=== PATIENT | female | born 2000 | race Two or more races ===

== ENCOUNTER 2025-06-23 19:27 | Inpatient (IN) | payer BC, OTHER ==
[~2025-06-23] VITALS: Ht 162.6 cm; Wt 73.2 kg
[2025-06-23 21:14] LABS: Hematocrit 40.5 % (36.0-46.0); Hemoglobin 13.3 g/dL (12.2-16.2); Mean Corpuscular Hemoglobin 29.3 pg (28.0-32.0); Mean Corpuscular Volume 89.0 fL (80.0-100.0); Nucleated Red Blood Cells % 0.0 %
--- NOTE | 2025-06-23 21:15 | DVH ---
EXAM: CT CT AB PEL WO CON-NO ORAL OR IV HISTORY: FLANK PAIN Comparison Study: None Exam Date: 06/23/2025 08:49 PM Radiation Dose Information: CT Dose: CTDI volume is 13.13 mGy. Dose-length product is 765.2 mGy*cm Technique: Multidetector CT of the abdomen and pelvis was performed. Imaging was performed without IV contrast. Axial, coronal and sagittal multiplanar reformats were obtained from the axial data set by the technologist. Findings: Lack of intravenous contrast compromises evaluation of perfusion and for isodense lesions. Lower chest: Clear. Liver: Unremarkable Biliary system: Unremarkable Spleen: Unremarkable Pancreas: Unremarkable. Adrenals: Unremarkable. Kidneys and ureters: 5 mm calculus in the proximal right ureter with moderate upstream collecting system dilatation. Punctate nonobstructing left upper pole calculus. Bowel: No obstruction. Diffuse stool burden throughout the colon. Normal appendix. Bladder: Unremarkable Reproductive organs: No abnormal mass. Lymph nodes: Unremarkable. Peritoneum: Unremarkable Vessels: Patency not evaluated on this noncontrast study. Bones and soft tissue: No aggressive osseous lesion IMPRESSION: Obstructing 5 mm right proximal ureteral calculus with moderate upstream collecting system dilatation. Diffuse stool burden suggestive of constipation.
[2025-06-23 21:29] LABS: Alanine Aminotransferase 23 U/L (7-40); Albumin 4.5 g/dL (3.2-4.8); Alkaline Phosphatase 77 U/L (46-116); Anion Gap 9 (5-15); BUN/Creatinine Ratio 23.3 (10.0-20.0); Blood Urea Nitrogen 20 mg/dL (9-23); Calcium 9.2 mg/dL (8.7-10.4); Carbon Dioxide 26 mmol/L (20-31); Chloride 105 mmol/L (98-107); Glucose 100 mg/dL (74-106); Potassium 3.5 mmol/L (3.5-5.1); Sodium 140 mmol/L (136-145); Total Protein 7.6 g/dL (5.7-8.2)
[2025-06-23 21:30] LABS: Bilirubin, Total 0.7 mg/dL (0.2-1.0)
--- NOTE | 2025-06-23 22:01 | ED.PDOC ---
General HPI Comments HPI: This is a 24 year old female presenting to the ED with chief complaint of abdominal pain. Patient reports that she has been experiencing RUQ/right side rib pain with associated nausea and chills since 4 hours ago. Patient relays that her symptoms feel similar to a previous kidney stone she had passed. Patient denies any vomiting, dysuria, hematuria, flank pain, dizziness, fever, or chills. Past Medical History: Kidney stones Past Surgical History: Social History: Denies smoking, ETOH, or drug use Medications: None Allergies: NKDA HPI: Poor Historian. ALEXY: R ABD PAIN. NO FP, NORMAL , CURRENTLY ON HER CYCLE. N/ abdominal PAIN. NORMAL EXAM. REVIEW OF SYSTEMS: CONSTITUTIONAL: Denies acute: fever, diaphoresis, chills, generalized weakness. HEAD: Denies acute: headache, photophobia Eyes: Denies acute: Double vision, vision loss, eye pain, eye discharge. EARS: Denies acute: tinnitus, hearing loss, ear discharge, ear pain, THROAT: Denies acute: sore throat, swelling, difficulty swallowing , pain with swallowing, change in voice. NECK: Denies acute: neck pain, neck swelling, stiff neck. HEART: Denies acute : chest pain, palpitations, LUNGS: Denies acute: SOB, wheezing, cough, hemoptysis ABDOMEN: Denies acute: Vomiting, diarrhea, melena , hematemesis, hematochezia SKIN: Denies acute: rash, redness, lesions, itchiness. EXTREMITIES: Denies acute: calf pain, numbness, tingling, weakness, denies pain in extremity. Denies acute: Low back pain. Neuro: Denies acute: focal neurological deficit, motor or sensory focal neurological deficit, tremors, seizure like activity, confusion, dizziness, change in mental status, loss of bowel or bladder function, cauda equina like symptoms. : Denies acute: dysuria, hematuria, flank pain, increase in urinary frequency. PSYCH: Denies acute: hallucination, suicidal ideation, homicidal ideation. FEMALE: Denies acute: abnormal vaginal bleeding, foul odor, unusual discharge. PHYSICAL EXAM: General: ----moderate----acute distress, awake and alert. Head: normocephalic, atraumatic. No raccoon's eyes, no zee sign. Neck: supple, trachea is midline, no swelling. Throat: Normal phonation. Eyes:, no erythema, no purulent discharge, no proptosis, no icterus. Heart: regular rate, regular rhythm, no significant murmur appreciated. Lungs: no apparent respiratory distress, Able to speak in full sentences. No wheezing, no rhonchi, no crackles. No stridors Clear to auscultation bilaterally. Abdomen: Right mid axillary line below the ribcage tender to palpation, non distended, soft, no guarding, no rebound, + bowel sounds. Neuro: Awake, Alert, oriented to name, self, situation, follows commands GCS=15. Speech is normal. Skin: no petechia, no purpura, no cyanosis, non-pale, not jaundice. Lower extremities: --no - Pitting edema no deformity, no focal swelling, no calf TTP. Makes eye contact. moves all four extremities. Face: no apparent facial droop. No CVA tenderness to percussion bilaterally. Ambulating in the ED independently. ED COURSE: DISCLAIMER: This medical document was created using an electronic medical record system with voice recognition software and computerized dictation system. Although this document has been carefully reviewed, there might still be some phonetic and typographical errors. Occasional wrong-word or "sound-alike" substitutions may have occurred due to the inherent limitations of voice recognition software. These areas are purely typographical due to imperfections of the software programs and do not reflect any compromise in the patient's medical care. Please read the chart carefully and recognize, using context, where these substitutions have occurred. Chief Complaint: Flank Pain Time Seen by MD: 21:58 Reviewed notes: Medications, Allergies Allergies: Coded Allergies: NO KNOWN ALLERGIES (Unverified , 06/23/25) Home Meds No Active Prescriptions or Reported Meds Information Source: Patient Mode of Arrival: Ambulatory Was a procedure done? Was a procedure done?: No Differential Diagnosis Kidney stone (Female): Other (Flank Pain;DDX include Nephrolethiasis, obstructive uropathy, kidney cancer, renal infarct, intraabdominal neoplasm, lower lobe pneumonia, retroperitoneal hemorrhage, pancreatitis, aneurysm, dissection, musculoskeletal, rib contusion/trauma, hematoma, PYLONEPHRITIS, muscle strain, spinal disease. IN A FEMALE) Other Differential Diagnosis DDX include Diverticulitis, colitis, gastroenteritis, acute abdomen, SBO, enteritis, constipation, volvulus, appendicitis, Gallbladder disease, choledocolithiasis, ascending cholangitis, pancreatitis, intraAbdominal mass/neoplasm, hepatitis, UTI, pylonephritis, kidney stone, aneurysm, dissection, Inflammatory bowel disease, gastroparesis, ischemic bowel,,,,,, Food poisoning, bacterial/parasitic/viral etiology, trauma, diabetes DKA, ovarian torsion, ovarian cyst/mass, tubo-ovarian abscess, , ectopic , PID, STD. X-Ray, Labs, Meds, VS Vital Signs Date Time Temp Pulse Resp B/P (MAP) Pulse Ox O2 Delivery O2 Flow Rate FiO2 06/23/25 22:27 98.6 67 16 117/80 (92) 100 98.6 06/23/25 19:31 98.7 74 18 126/76 99 98.7 Lab Test 06/23/25 21:56 06/23/25 21:00 Range/Units Urine Color Light-orange Yellow Urine Clarity Turbid H Clear Urine pH 7.0 5.0-9.0 Urine Specific [place] 1.027 1.001-1.035 Urine Protein 1+ H Negative Urine Ketones 2+ H Negative Urine Blood 3+ H Negative /uL Urine Nitrite Negative Negative Urine Bilirubin Negative Negative Urine Urobilinogen Normal Negative mg/dL Urine Leukocyte Esterase Negative Negative /uL Urine RBC 1227 0 - 4 /hpf Urine Microscopic WBC 0-5 /HPF Urine Squamous Epithelial Cells None seen <5 /hpf Urine Bacteria None seen None Seen /hpf Urine Mucus Few None Seen Urine Yeast (Budding) Few None Seen /hpf Urine Glucose Normal Normal mg/dL Urine Opiates Screen Neg NEGATIVE Urine Fentanyl Screen Neg NEGATIVE Urine Barbiturates Screen Neg NEGATIVE Urine Phencyclidine Screen Neg NEGATIVE Urine Amphetamines Screen Neg NEGATIVE Urine Benzodiazepines Screen Neg NEGATIVE Urine Cocaine Screen Neg NEGATIVE Urine Cannabinoids Screen Neg NEGATIVE White Blood Count 13.3 H 4.4-10.8 10^3/uL Red Blood Count 4.55 4.0-5.20 10^6/uL Hemoglobin 13.3 12.2-16.2 g/dL Hematocrit 40.5 36.0-46.0 % Mean Corpuscular Volume 89.0 80.0-100.0 fL Mean Corpuscular Hemoglobin 29.3 28.0-32.0 pg Mean Corpuscular Hemoglobin Concent 32.9 32.0-36.0 g/dL Red Cell Distribution Width 13.8 11.8-14.3 % Platelet Count 256 140-450 10^3/uL Mean Platelet Volume 7.4 6.9-10.8 fL Neutrophils (%) (Auto) 82.5 H 37.0-80.0 % Lymphocytes (%) (Auto) 9.5 L 10.0-50.0 % Monocytes (%) (Auto) 7.3 0.0-12.0 % Eosinophils (%) (Auto) 0.4 0.0-7.0 % Basophils (%) (Auto) 0.3 0.0-2.0 % Neutrophils # (Auto) 11.0 H 1.6-8.6 10 ^3/uL Lymphocytes # (Auto) 1.3 0.4-5.4 10 ^3/uL Monocytes # (Auto) 1.0 0-1.3 10 ^3/uL Eosinophils # (Auto) 0.1 0-0.8 10 ^3/uL Basophils # (Auto) 0 0-0.2 10 ^3/uL Nucleated Red Blood Cells 0.0 % Sodium Level 140 136-145 mmol/L Potassium Level 3.5 3.5-5.1 mmol/L Chloride Level 105 98-107 mmol/L Carbon Dioxide Level 26 20-31 mmol/L Anion Gap 9 5-15 Blood Urea Nitrogen 20 9-23 mg/dL Creatinine 0.86 0.550-1.02 mg/dL Glomerular Filtration Rate Calc 95 >90 mL/min BUN/Creatinine Ratio 23.3 H 10.0-20.0 Serum Glucose 100 74-106 mg/dL Lactic Acid Level 1.0 0.4-2.0 mmol/L Calcium Level 9.2 8.7-10.4 mg/dL Total Bilirubin 0.7 0.2-1.0 mg/dL Aspartate Amino Transferase (AST) 25 13-40 U/L Alanine Aminotransferase (ALT) 23 7-40 U/L Alkaline Phosphatase 77 46-116 U/L Total Protein 7.6 5.7-8.2 g/dL Albumin 4.5 3.2-4.8 g/dL Current Medications Medications (Trade) Dose Ordered Sig/Corina Route Start Time Stop Time Status Last Admin Tamsulosin HCl (Flomax) 0.4 mg ONCE ONCE PO 06/23/25 22:00 06/23/25 22:01 DC 06/23/25 23:39 Fentanyl Citrate 100 mcg ONCE ONCE IV 06/23/25 22:00 06/23/25 22:01 DC 06/23/25 23:37 Sodium Chloride 1,000 ml @ 1,000 mls/hr Q1H ONCE IV 06/23/25 22:00 06/23/25 22:59 DC 06/23/25 23:19 [place] [address] Ph: [phone] DIAGNOSTIC IMAGING Diagnostic Imaging Report : [id number] Signed PATIENT: MEGAN TRACEYCT: [id number] UNIT: [id number] : 2000 LOC: ER ROOM / BED: / AGE / SEX: 24 / F ADM STATUS: REG ER SERVICE 38 ORDERING PHYSICIAN: CHARLEE CANALES DO PROCEDURE(s): ABPL - CT AB PEL WO CON-NO ORAL OR IV REASON: FLANK PAIN ORDER NUMBER(s): [id number], ACCESSION NUMBER(s): [id number] EXAM: CT CT AB PEL WO CON-NO ORAL OR IV HISTORY: FLANK PAIN Comparison Study: None Exam Date: 06/23/2025 08:49 PM Radiation Dose Information: CT Dose: CTDI volume is 13.13 mGy. Dose-length product is 765.2 mGy*cm Technique: Multidetector CT of the abdomen and pelvis was performed. Imaging was performed without IV contrast. Axial, coronal and sagittal multiplanar reformats were obtained from the axial data set by the technologist. Findings: Lack of intravenous contrast compromises evaluation of perfusion and for isodense lesions. Lower chest: Clear. Liver: Unremarkable Biliary system: Unremarkable Spleen: Unremarkable Pancreas: Unremarkable. Adrenals: Unremarkable. Kidneys and ureters: 5 mm calculus in the proximal right ureter with moderate upstream collecting system dilatation. Punctate nonobstructing left upper pole calculus. Bowel: No obstruction. Diffuse stool burden throughout the colon. Normal appendix. Bladder: Unremarkable Reproductive organs: No abnormal mass. Lymph nodes: Unremarkable. Peritoneum: Unremarkable Vessels: Patency not evaluated on this noncontrast study. Bones and soft tissue: No aggressive osseous lesion IMPRESSION: Obstructing 5 mm right proximal ureteral calculus with moderate upstream collecting system dilatation. Diffuse stool burden suggestive of constipation. ATED BY: ADAN JACOBSEN MD DICTATED DATE/TIME: 06/23/252112 SIGNED BY: ADAN JACOBSEN MD SIGNED DATE/TIME: 06/23/252112 CC: Time of 1ST Reevaluation: 22:58 Reevaluation 1ST: Unchanged Patient Education/Counseling: Diagnosis, Treatment Family Education/Counseling: No Family Present Comments MDM: patient presented with the above HPI.-abdominal pain-----workup was initiated. patient was found with the above mentioned diagnosis. the following medications were ordered: please refer to order lists of meds and tests obtained by myself Dr. Canales. Patient ED course and VS have been stabilized. Patient has been reassessed in the ED and remained in a stable condition. Pertinent incidental findings were discussed with the patient and/or family. Patient/family voices understanding and is agreeable with plan. Patient has been observed in the ED adequate length of time to insure improvement/stability. Escalation of care considered: Consideration of escalation to observation or admission Patient was ADMITTED to the medicine team for further evaluation and treatment of their presentation. All the reports of any imaging studies that were ordered by myself were reviewed by myself. Departure 1 Departure Time of Disposition: 04:46 Impression: Primary Impression: Urinary tract obstruction by kidney stone Additional Impression: Constipation Disposition: ADMITTED INPATIENT Admit to: Tele Condition: Guarded e-Prescriptions No Active Prescriptions or Reported Meds Discharged With: Self Critical Care Note Critical Care Time?: No I personally scribed for CHARLEE CANALES DO ([email or web address]) on 06/23/25 at 22:01. Electronically submitted by Aníbal Moody ([email or web address]). CHARLEE CANALES DO Jun 23, 2025 22:01
[2025-06-23 22:35] LABS: Urine Budding Yeast FEW /hpf (None Seen); Urine Protein, UAD 1+ (Negative)
--- NOTE | 2025-06-23 23:10 | DVHHPRES ---
History of Present Illness Resident Creating Document: ARTI WALTERS RESIDENT History of Present Illness This is a 24-year-old female with apparently no past medical history came to ER with complaint of intractable right flank pain which started today around 3:00 p.m. day of admission which is 9/10 intensity, aggravated on movement or walking, not tried any meds, localized no radiation, stabbing in nature. Patient history of passes stone 1 and half year ago. Patient denies any recent dietary changes or taking OTC drugs like calcium. No recent history of trauma or sick contacts. Denies any fever, SOB, cough, abdominal pain, dysuria or any other acute distress. Past medical history: History of kidney stone Past surgical history: x1 2021 Family history: Mother- kidney stone Personal: Denies any smoking, illicit drug or EtOH Allergy: No known allergy PCP: Not selected Review of Systems Constitutional: Yes: Malaise; No: Fever, Chills, Sweats, Weakness, Other Eyes: No: Pain, Vision change, Conjunctivae inflammation, Eyelid inflammation, Other, Redness ENT: No: Ear pain, Ear discharge, Nose pain, Nose discharge, Nose congestion, Mouth pain, Mouth swelling, Throat pain, Throat swelling, Other Respiratory: No: Cough, Dry, Shortness of breath, SOB with excertion, Wheezing, Hemoptysis, Pleuritic Pain, Sputum, Wheezing, Other Cardiovascular: No: Chest Pain, Palpitations, Orthopnea, Paroxysmal Noc. Dyspnea, Edema, Lt Headedness, Other Gastrointestinal: Nausea, Other (Right flank pain); No: Vomiting, Abdominal Radha n, Diarrhea, Constipation, Melena, Hematochezia Genitourinary: No Dysuria, No Frequency, No Incontinence, No Hematuria, No Retention, No Other Musculoskeletal: No: other, neck pain, shoulder pain, arm pain, back pain, hand pain, leg pain, foot pain Skin: No: Rash, Lesions, Jaundice, Bruising, Other Neurological: No: Weakness, Numbness, Incoordination, Change in speech, Confusion, Seizures, Other Allergies: Coded Allergies: NO KNOWN ALLERGIES (Unverified , 06/23/25) Medications Current Medications Medications Dose Ordered Sig/Corina Route Start Time Stop Time Status Last Admin Dose Admin Sodium Chloride 1,000 ml @ 120 mls/hr Q8H20M IV 06/23/25 23:15 UNV Acetaminophen/ Hydrocodone Bitart 1 tab Q4HP PRN PO 06/23/25 23:15 UNV Enoxaparin Sodium 40 mg DAILY SC 06/24/25 10:00 UNV Tamsulosin HCl 0.4 mg QPM PO 06/24/25 18:00 UNV Exam Vital Signs Vital Signs Date Time Temp Pulse Resp B/P (MAP) Pulse Ox O2 Delivery O2 Flow Rate FiO2 06/23/25 22:27 98.6 67 16 117/80 (92) 100 98.6 General Appearance: Alert, Oriented X3, Cooperative, moderate distress HEENT: Atraumatic, EOMI, Mucous membr. moist/pink Respiratory: Clear to auscultation, Normal air movement Cardiovascular: Regular rate, Normal S1, Normal S2, No murmurs Abdominal: Normal bowel sounds, Soft, Other (Costovertebral angle tender on deep palpation) Extremities: No clubbing, No cyanosis, Normal pulses Skin: No rashes, No breakdown Neuro: Normal gait, Normal speech, Strength at 5/5 X4 ext, Sensation intact, Cranial nerves 3-12 NL Psych/Mental Status: Mental status NL, Mood NL Labs/Xrays Labs Test 06/23/25 21:56 06/23/25 21:00 Range/Units Urine Color Light-orange Yellow Urine Clarity Turbid H Clear Urine pH 7.0 5.0-9.0 Urine Specific [place] 1.027 1.001-1.035 Urine Protein 1+ H Negative Urine Ketones 2+ H Negative Urine Blood 3+ H Negative /uL Urine Nitrite Negative Negative Urine Bilirubin Negative Negative Urine Urobilinogen Normal Negative mg/dL Urine Leukocyte Esterase Negative Negative /uL Urine RBC 1227 0 - 4 /hpf Urine Microscopic WBC 0-5 /HPF Urine Squamous Epithelial Cells None seen <5 /hpf Urine Bacteria None seen None Seen /hpf Urine Mucus Few None Seen Urine Yeast (Budding) Few None Seen /hpf Urine Glucose Normal Normal mg/dL White Blood Count 13.3 H 4.4-10.8 10^3/uL Red Blood Count 4.55 4.0-5.20 10^6/uL Hemoglobin 13.3 12.2-16.2 g/dL Hematocrit 40.5 36.0-46.0 % Mean Corpuscular Volume 89.0 80.0-100.0 fL Mean Corpuscular Hemoglobin 29.3 28.0-32.0 pg Mean Corpuscular Hemoglobin Concent 32.9 32.0-36.0 g/dL Red Cell Distribution Width 13.8 11.8-14.3 % Platelet Count 256 140-450 10^3/uL Mean Platelet Volume 7.4 6.9-10.8 fL Neutrophils (%) (Auto) 82.5 H 37.0-80.0 % Lymphocytes (%) (Auto) 9.5 L 10.0-50.0 % Monocytes (%) (Auto) 7.3 0.0-12.0 % Eosinophils (%) (Auto) 0.4 0.0-7.0 % Basophils (%) (Auto) 0.3 0.0-2.0 % Neutrophils # (Auto) 11.0 H 1.6-8.6 10 ^3/uL Lymphocytes # (Auto) 1.3 0.4-5.4 10 ^3/uL Monocytes # (Auto) 1.0 0-1.3 10 ^3/uL Eosinophils # (Auto) 0.1 0-0.8 10 ^3/uL Basophils # (Auto) 0 0-0.2 10 ^3/uL Nucleated Red Blood Cells 0.0 % Sodium Level 140 136-145 mmol/L Potassium Level 3.5 3.5-5.1 mmol/L Chloride Level 105 98-107 mmol/L Carbon Dioxide Level 26 20-31 mmol/L Anion Gap 9 5-15 Blood Urea Nitrogen 20 9-23 mg/dL Creatinine 0.86 0.550-1.02 mg/dL Glomerular Filtration Rate Calc 95 >90 mL/min BUN/Creatinine Ratio 23.3 H 10.0-20.0 Serum Glucose 100 74-106 mg/dL Lactic Acid Level 1.0 0.4-2.0 mmol/L Calcium Level 9.2 8.7-10.4 mg/dL Total Bilirubin 0.7 0.2-1.0 mg/dL Aspartate Amino Transferase (AST) 25 13-40 U/L Alanine Aminotransferase (ALT) 23 7-40 U/L Alkaline Phosphatase 77 46-116 U/L Total Protein 7.6 5.7-8.2 g/dL Albumin 4.5 3.2-4.8 g/dL SEPSIS Sepsis Screen Date sepsis recognized/suspect: Jun 23, 2025 Time Sepsis recognized/suspect: 1933 Recent Procedure: No On Antibiotic Therapy: No Respiratory Rate >20: No Heart Rate >90: No Temp<36 C (96.8 F) or >38.3 C: No SBP <90 or MAP <65 mmHG: No New Acute Mental Status Change: No Is the patient on CPAP, BIPAP,: No Physician Orders Carrot Grader Inspector (06/23/25 ) Ct Ab Pel Wo Con-No Oral Or Iv (06/23/25 20:39) Admit (06/23/25 23:05) Code Status (06/23/25 23:05) 0.9% Ns 1000 Ml (06/23/25 23:15) Hydrocodone-Acet 5/325mg Tab ([place] 5/32 (06/23/25 23:15) Enoxaparin Sodium (Lovenox) (06/24/25 10:00) Notify Md Of Changes From Base (06/23/25 23:05) Regular Diet (06/24/25 Breakfast) Tamsulosin Hydrochloride (Flomax) (06/24/25 18:00) Vital Signs Date Time Temp Pulse Resp B/P (MAP) Pulse Ox O2 Delivery O2 Flow Rate FiO2 06/23/25 22:27 98.6 67 16 117/80 (92) 100 98.6 06/23/25 19:31 98.7 74 18 126/76 99 98.7 Laboratory Tests Test 06/23/25 21:00 Lactic Acid Level 1.0 mmol/L (0.4-2.0) White Blood Count 13.3 10^3/uL (4.4-10.8) H Assessment/Plan Assessment/Plan Intractable right flank pain due to obstructive right ureteric calculus In ER patient received fentanyl, tamsulosin, NSS CT abdomen pelvis without contrast: Obstructing 5 mm right proximal ureteral calculus with moderate upstream collecting system dilatation. lactic acid: 1.0 leukocytosis left-shifted UA: TURBID, KETONES 2+, BLOOD 3+, RBC 1227 IVF Pain management Antiemetic Tamsulosin Mannitol osmotic diuretic Urology consult as per primary team SIRS not sepsis Leukocytosis due to possible stress/pain Monitor labs Hematuria secondary to ureteric stone UA: TURBID, KETONES 2+, BLOOD 3+, RBC 1227 IVF Monitor for bleeding. Diet: Regular GI prophylaxis: Pantoprazole DVT prophylax: Patient ambulates Goals of care discussion. More than 29 minute spent with patient. Full code status. Case discussed with Dr. Martines Plan discussed with: Patient, Other (Nurse) My Orders Orders - ARTI WALTERS Procedure Category Date Status Time Admit ADMIT 06/23/25 Transmitted 23:05 Code Status CODE 06/23/25 Transmitted 23:05 0.9% Ns 1000 Ml PHA 06/23/25 Transmitted 23:15 Hydrocodone-Acet PHA 06/23/25 Transmitted 5/325mg Tab ([place] 23:15 Enoxaparin Sodium PHA 06/24/25 Transmitted (Lovenox) 10:00 Notify Md Of Changes SUSANA 06/23/25 Transmitted From Base 23:05 Regular Diet DIET 06/24/25 Transmitted Breakfast Tamsulosin PHA 06/24/25 Transmitted Hydrochloride (Flomax) 18:00 Visit Coding STANDARD RES Billing Provider: TWIN FULLER MD Date of Service if different f: Jun 23, 2025 ARTI WALTERS Jun 23, 2025 23:10
[2025-06-23] MEDS: SODIUM CHLORIDE 0.9% 1,000 ML IV ONE (23:19)
[2025-06-23] MEDS: SODIUM CHLORIDE 0.9% 1,000 ML IV SCH (23:29)
[2025-06-23] MEDS: fentaNYL CITRATE 100 MCG/2 ML VL IV ONE (23:37)
[2025-06-23] MEDS: TAMSULOSIN HYDROCHLORIDE 0.4 MG CAP PO ONE ×2 (23:39)
[2025-06-24 00:17] VITALS: RESP 18
[2025-06-24] MEDS: MANNITOL FTV 25% 12.5 GM/50 ML 50 ML IV ONE (00:18)
[2025-06-24 01:00] VITALS: BP 114/64; PULSE 52; RESP 20; TEMP 97.9; O2SAT 100
[2025-06-24] MEDS: HYDROcodone-ACET 5/325MG TAB PO PRN (01:50)
[2025-06-24] MEDS ORDERED: ACETAMINOPHEN 325 MG TAB PO PRN (03:00)
[2025-06-24] MEDS: ONDANSETRON HCL 4 MG/2 ML VIAL IV PRN (03:09)
[2025-06-24 03:37] LABS: Amphetamine Screen, Urine Neg (NEGATIVE); Barbiturate Scree,Urine Neg (NEGATIVE); Benzodiazephine Screen, Urine Neg (NEGATIVE); Cannabinoid Screen, Urine Neg (NEGATIVE); Cocaine Screen, Urine Neg (NEGATIVE); Opiate Scree,Urine Neg (NEGATIVE); Phencyclidine Screen, Urine Neg (NEGATIVE)
[2025-06-24 05:00] VITALS: BP 104/57; PULSE 57; RESP 20; TEMP 98.4; O2SAT 99
[2025-06-24 07:18] LABS: Hematocrit 38.9 % (36.0-46.0); Hemoglobin 12.8 g/dL (12.2-16.2); Mean Corpuscular Hemoglobin 29.4 pg (28.0-32.0); Mean Corpuscular Volume 88.8 fL (80.0-100.0); Nucleated Red Blood Cells % 0.0 %
[2025-06-24 07:28] LABS: Chloride 106 mmol/L (98-107); Potassium 3.9 mmol/L (3.5-5.1); Sodium 140 mmol/L (136-145)
[2025-06-24 07:29] LABS: Anion Gap 9 (5-15)
[2025-06-24 07:34] LABS: BUN/Creatinine Ratio 21.7 (10.0-20.0); Blood Urea Nitrogen 20 mg/dL (9-23); Calcium 8.7 mg/dL (8.7-10.4); Glucose 105 mg/dL (74-106)
[2025-06-24 07:36] LABS: Carbon Dioxide 25 mmol/L (20-31)
[2025-06-24 08:00] VITALS: PULSE 65; RESP 18
[2025-06-24] MEDS: ENOXAPARIN SOD 40 MG/0.4 ML SYRINGE SC SCH (10:00)
[2025-06-24] MEDS ORDERED: TAMSULOSIN HYDROCHLORIDE 0.4 MG CAP PO SCH ×2 (10:00→18:00)
[2025-06-24] MEDS ORDERED: TAMS-35 PO (10:58)
[2025-06-24] MEDS ORDERED: IBU600T PO (10:58)
[2025-06-24] MEDS ORDERED: HYDR-4902 PO (10:58)
--- NOTE | 2025-06-24 11:26 | DVHDSRES ---
Discharge Summary Date of Admission Resident Creating Document: STEPHANIE CUELLAR RESIDENT Jun 23, 2025 at 23:05 Date of Discharge: Jun 24, 2025 Admitting Diagnosis acute right flank pain, likely due to ureteric stone Labs/Diagnostic Data: Laboratory Results Test 06/24/25 06:48 06/23/25 21:56 06/23/25 21:00 White Blood Count 10.8 10^3/uL (4.4-10.8) Red Blood Count 4.38 10^6/uL (4.0-5.20) Hemoglobin 12.8 g/dL (12.2-16.2) Hematocrit 38.9 % (36.0-46.0) Mean Corpuscular Volume 88.8 fL (80.0-100.0) Mean Corpuscular Hemoglobin 29.4 pg (28.0-32.0) Mean Corpuscular Hemoglobin Concent 33.1 g/dL (32.0-36.0) Red Cell Distribution Width 13.9 % (11.8-14.3) Platelet Count 245 10^3/uL (140-450) Mean Platelet Volume 7.5 fL (6.9-10.8) Neutrophils (%) (Auto) 82.8 % (37.0-80.0) Lymphocytes (%) (Auto) 8.4 % (10.0-50.0) Monocytes (%) (Auto) 8.6 % (0.0-12.0) Eosinophils (%) (Auto) 0.0 % (0.0-7.0) Basophils (%) (Auto) 0.2 % (0.0-2.0) Neutrophils # (Auto) 8.9 10 ^3/uL (1.6-8.6) Lymphocytes # (Auto) 0.9 10 ^3/uL (0.4-5.4) Monocytes # (Auto) 0.9 10 ^3/uL (0-1.3) Eosinophils # (Auto) 0 10 ^3/uL (0-0.8) Basophils # (Auto) 0 10 ^3/uL (0-0.2) Nucleated Red Blood Cells 0.0 % Sodium Level 140 mmol/L (136-145) Potassium Level 3.9 mmol/L (3.5-5.1) Chloride Level 106 mmol/L (98-107) Carbon Dioxide Level 25 mmol/L (20-31) Anion Gap 9 (5-15) Blood Urea Nitrogen 20 mg/dL (9-23) Creatinine 0.92 mg/dL (0.550-1.02) Glomerular Filtration Rate Calc 88 mL/min (>90) BUN/Creatinine Ratio 21.7 (10.0-20.0) Serum Glucose 105 mg/dL (74-106) Hemoglobin A1c 5.3 % A1C (<5.7) Calcium Level 8.7 mg/dL (8.7-10.4) Vitamin B12 Level 764 pg/mL (211-911) Vitamin D 25-Hydroxy 30.9 ng/mL (30.0-100) Thyroid Stimulating Hormone (TSH) 0.34 uIU/mL (0.55-4.78) Urine Color Light-orange (Yellow) Urine Clarity Turbid (Clear) Urine pH 7.0 (5.0-9.0) Urine Specific [place] 1.027 (1.001-1.035) Urine Protein 1+ (Negative) Urine Ketones 2+ (Negative) Urine Blood 3+ /uL (Negative) Urine Nitrite Negative (Negative) Urine Bilirubin Negative (Negative) Urine Urobilinogen Normal mg/dL (Negative) Urine Leukocyte Esterase Negative /uL (Negative) Urine RBC 1227 /hpf (0 - 4) Urine Microscopic WBC /HPF (0-5) Urine Squamous Epithelial Cells None seen /hpf (<5) Urine Bacteria None seen /hpf (None Seen) Urine Mucus Few (None Seen) Urine Yeast (Budding) Few /hpf (None Seen) Urine Glucose Normal mg/dL (Normal) Urine Opiates Screen Neg (NEGATIVE) Urine Fentanyl Screen Neg (NEGATIVE) Urine Barbiturates Screen Neg (NEGATIVE) Urine Phencyclidine Screen Neg (NEGATIVE) Urine Amphetamines Screen Neg (NEGATIVE) Urine Benzodiazepines Screen Neg (NEGATIVE) Urine Cocaine Screen Neg (NEGATIVE) Urine Cannabinoids Screen Neg (NEGATIVE) Lactic Acid Level 1.0 mmol/L (0.4-2.0) Total Bilirubin 0.7 mg/dL (0.2-1.0) Aspartate Amino Transferase (AST) 25 U/L (13-40) Alanine Aminotransferase (ALT) 23 U/L (7-40) Alkaline Phosphatase 77 U/L (46-116) Total Protein 7.6 g/dL (5.7-8.2) Albumin 4.5 g/dL (3.2-4.8) Other Laboratory Tests 06/24/25 06:48 Brief Hx & Hospital Course: Shanika Hector is a 24-year old female who presented to the ED with a chief complaint of right flank pain since 3:00 p.m. yesterday. The patient described the pain as sharp, stabbing, nonradiating, 9/10 in intensity, progressively getting worse, aggravated on movement. Patient started having nausea and 2 episodes of vomiting after coming to the ED. She denies any hematuria. She did not have any chills, fever, reason sick contacts. The patient has a history of kidneys tone on the right side 1 year back which passed on its own. Patient is currently menstruating. Patient was given pain medication, Flomax, IV fluids. Urology was consulted who recommended outpatient follow up. The urology outpatient appointment was scheduled for 07/22/2025. Patient was discharged home in a stable condition on Flomax, pain medication, Zofran. Medications and recommendations were thoroughly explained to the patient and she demonstrated understanding of the same. She was recommended to follow with Urology and with PCP. Past medical history: Kidney stone 1 year back Past surgical history: section in 2021 Social & Personal history: Lives at home with family, denies smoking, alcohol, drug use Allergies: No known allergies General Appearance: Cooperative. Well developed. Well nourished. NAD Head Exam: Normal inspection Neck Exam: Normal inspection. Non-tender. Normal alignment Pulmonary/Respiratory: Chest non-tender. Clear bilateral breath sounds, no crackles, no wheezing. Cardiovascular/Chest: Regular rate and rhythm. No murmurs. No JVD. Peripheral Pulses: 2+ Radial (R). 2+ Radial (L). 2+ Pedal (R). 2+ Pedal (L) Abdominal Exam: Normal bowel sounds. Soft. normal abdomen, no visible veins, tenderness at right CVA, No hepatospenomegaly. No masses Ankle Exam: Negative ankle edema Lower extremities: Negative lower extremity edema Neuro/Mental Status: A&O x4. Coherent. Thoughts/Psych: Normal thought pattern. Appropriate mood and affect. Good judgement and insight Skin Exam: Normal inspection. Normal color. Warm. Dry Operations or Procedures PROCEDURE(s): ABPL - CT AB PEL WO CON-NO ORAL OR IV REASON: FLANK PAIN ORDER NUMBER(s): [id number], ACCESSION NUMBER(s): [id number] EXAM: CT CT AB PEL WO CON-NO ORAL OR IV HISTORY: FLANK PAIN Comparison Study: None Exam Date: 06/23/2025 08:49 PM Radiation Dose Information: CT Dose: CTDI volume is 13.13 mGy. Dose-length product is 765.2 mGy*cm Technique: Multidetector CT of the abdomen and pelvis was performed. Imaging was performed without IV contrast. Axial, coronal and sagittal multiplanar reformats were obtained from the axial data set by the technologist. Findings: Lack of intravenous contrast compromises evaluation of perfusion and for isodense lesions. Lower chest: Clear. Liver: Unremarkable Biliary system: Unremarkable Spleen: Unremarkable Pancreas: Unremarkable. Adrenals: Unremarkable. Kidneys and ureters: 5 mm calculus in the proximal right ureter with moderate upstream collecting system dilatation. Punctate nonobstructing left upper pole calculus. Bowel: No obstruction. Diffuse stool burden throughout the colon. Normal appendix. Bladder: Unremarkable Reproductive organs: No abnormal mass. Lymph nodes: Unremarkable. Peritoneum: Unremarkable Vessels: Patency not evaluated on this noncontrast study. Bones and soft tissue: No aggressive osseous lesion IMPRESSION: Obstructing 5 mm right proximal ureteral calculus with moderate upstream collecting system dilatation. Diffuse stool burden suggestive of constipation. Condition at Discharge: Fair Final Diagnosis/Problems List SIRS, ruled out Intractable right flank pain due to obstructive right ureteric calculus Hematuria, possibly secondary to ureteric stone Discharge Disposition: Home Discharge Instruct/Medications Diet: Regular Diet comment: increased fluid intake Activity: No Restrictions, As Tolerated Follow Up/Referral: follow up with urology Medications: as per EMR Scheduled Ibuprofen Micronized (Motrin Tablet), 600 MG PO TID Tamsulosin Hcl (Flomax), 0.8 MG PO DAILY Scheduled PRN Hydrocodone-Acetaminophen (Hydrocodone Bitartrate/AC 5-325 mg), 1 TAB PO [id number] PRN Discharge Statement: "Patient was advised to return to the ER or call 911 if any headaches, dizziness, shortness of breath, chest pain, abdominal pain, bleeding, fevers, or worsening of medical condition. Patient was counseled about treatment plan, medications, possible side effects, patientverbalized understanding. All questions were answered to the best of my ability. This discharge took greater then 30 minutes in planning, reviewing documentation, counseling the patient, and discussing with other team members." ASSESSMENT ASSESSMENT Assessment obstructive right uretric stone Visit Coding STANDARD RES Billing Provider: SRINIVASA LIZ MD Date of Service if different f: Jun 24, 2025 Common Visit Codes: 84436-NGT/OBS DISCH DAY >30min STEPHANIE CUELLAR RESIDENT Jun 24, 2025 11:26
[2025-06-24] MEDS ORDERED: ONDA-155 PO (14:50)
== END 2025-06-24 15:10 | disposition home or self-care (01) | DRG 700 ==
LOC: ER 19:27 → OVERFLOW 23:05
PROVIDERS: ADMIT Student in an Organized Health Care Education/Training Program; ATTEND Student in an Organized Health Care Education/Training Program
DX: N13.9 Obstructive and reflux uropathy, unspecified (principal); K59.00 Constipation, unspecified; R31.9 Hematuria, unspecified; Z87.442 Personal history of urinary calculi; Z98.891 History of uterine scar from previous surgery
CPT/HCPCS: 36415; 74176; 80048; 80053; 80307; 81001; 82306; 82607; 83036; 83605; 84443; 85025; 96361; 96374; G0378; J2405

== ENCOUNTER 2025-06-30 12:19 | Outpatient (CLI) | payer BC ==
[~2025-06-30 12:19] MED LIST: HYDR-4902 PO; IBU600T PO; ONDA-155 PO; TAMS-35 PO
== END 2025-06-30 17:00 | disposition home or self-care (01) ==
LOC: LAB 12:19
PROVIDERS: ATTEND Internal Medicine
DX: N20.0 Calculus of kidney (principal)
CPT/HCPCS: 82360

== ENCOUNTER 2025-07-15 10:06 | Outpatient (CLI) | payer BC ==
[2025-07-15 10:49] LABS: Chloride 105 mmol/L (98-107); Potassium 4.3 mmol/L (3.5-5.1); Sodium 140 mmol/L (136-145)
[2025-07-15 10:51] LABS: Anion Gap 8 (5-15); Calcium 9.5 mg/dL (8.7-10.4); Carbon Dioxide 27 mmol/L (20-31)
[2025-07-15 10:56] LABS: BUN/Creatinine Ratio 17.3 (10.0-20.0); Blood Urea Nitrogen 13 mg/dL (9-23); Glucose 82 mg/dL (74-106)
[2025-07-15 11:16] LABS: Free T3 3.66 pg/mL (2.3-4.2)
[2025-07-15 11:18] LABS: Free T4 (Free Thyroxine) 1.13 ng/dL (0.89-1.76)
== END 2025-07-15 17:00 | disposition home or self-care (01) ==
LOC: LAB 10:06
PROVIDERS: ATTEND Internal Medicine
DX: E03.9 Hypothyroidism, unspecified (principal)
CPT/HCPCS: 36415; 80048; 84439; 84443; 84481